=== PATIENT | female | born 1990 | race Caucasian/White ===

== ENCOUNTER 2018-11-19 09:56 | Day surgery (SDC) | payer OTHER ==
[~2018-11-19] VITALS: Ht 170.2 cm; Wt 64.0 kg
[2018-11-19] VITALS (10 sets, daily range): BP systolic 111–140; BP diastolic 57–89; PULSE 57–76; RESP 16–25; Ht 170.2 cm; Wt 64.0 kg
[~2018-11-19 09:56] MED LIST: ACET1TAB40 PO; AMOX1TAB10 PO; CEFAZOLIN 1 GM/50 ML (PMX) 50 ML IVPB SCH; IBUP-1542 PO
--- NOTE | 2018-11-19 10:54 | HPN ---
Date/Time of Note Date/Time of Note DATE: 11/19/18 TIME: 10:54 Interval H&P Admission Note Pt. seen H&P reviewed: No system changes CARL MCMILLAN MD Nov 19, 2018 10:54
[2018-11-19] MEDS ORDERED: LACTATED RINGER'S 1,000 ML IV SCH (11:30)
--- NOTE | 2018-11-19 11:36 | PREAC ---
Date/Time of Note Date/Time of Note DATE: 11/19/18 TIME: 11:35 Anesthesia Eval and Record Evaluation Time Pre-Procedure Interview DATE: 11/19/18 TIME: 11:35 Age 28 Sex female NPO: 8 hrs Preoperative diagnosis septal deviation Planned procedure septoplasty, nasal turbinate reduction Past Medical History Past Medical History: Includes Recreational drugs: Marijuana (daily recreational smoker, last smoked marijuana yesterday) Surgery & Anesthesia Issues No known issue (hx left thumb surgery) Meds Anticoagulation: Yes Beta Keith within 24 hr: No Reason Beta Keith not given: Pt. not on B-Keith Discontinued Scripts Acetaminophen-Codeine* (Acetaminophen-Cod #3*) 300-30 Mg Tab, 1 TAB PO Q4H PRN for PAIN, #14 TAB Prov:VIN CORRAL MD 12/15/15 Ibuprofen* (Motrin*) 600 Mg Tab, 600 MG PO Q6, #14 TAB Prov:VIN CORRAL MD 12/15/15 Amox Tr/Potassium Clavulanate (Amox Tr-K Clv 875-125 Mg Tab) 1 Tab Tablet, 1 TAB PO BID for 7 Days, TAB Prov:VIN CORRAL MD 12/15/15 Current Medications Cefazolin Sodium 50 ml @ 100 mls/hr PREOP IVPB ; Start 11/19/18 at 06:30; Stop 11/19/18 at 18:00 Lactated Ringer's 1,000 ml @ 30 mls/hr Q24H IV ; Start 11/19/18 at 11:30 Meds reviewed: Yes Allergies Coded Allergies: Iodine and Iodide Containing Produc (Verified Allergy, Unknown, 11/19/18) Allergies Reviewed: Yes Labs/Studies Labs Reviewed: Reviewed by anesthesiologist test: Negative Pre-procedure Exam Last vitals Vital Signs Date Temp Pulse Resp B/P (MAP) Pulse Ox O2 O2 Flow FiO2 Time Delivery Rate 11/19/18 97.4 57 16 111/57 97 Room Air 10:52 (75) Airway: Adequate mouth opening, Adequate thyromental dist Mallampati: Mallampati II Teeth: Normal Lung: Normal Heart: Normal ASA Physical Status ASA physical status: 1 Emergency: None Planned Anesthetic General/MAC: ETT Planned Pain Management Parenteral pain med, Local by surgeon Pre-operative Attestations Prior to commencing anesthesia and surgery, the patient was re-evaluated, there was verification of: *The patient's identity *The results of appropriate recent lab work and preoperative vital signs *The above evaluation not changing prior to induction *Anesthetic plan, risk benefits, alternative and complications discussed with patient/family; questions answered; patient/family understands, accepts and wishes to proceed. BIENVENIDO SOLER Nov 19, 2018 11:36
[2018-11-19] MEDS ORDERED: OXYMETAZOLINE 0.05% 15 ML NAS SPRAY NASAL ONE (12:18)
[2018-11-19] MEDS ORDERED: LIDOCAINE 1%/EPI (1:100,000) (MDV) 20 ML ONE (12:18)
[2018-11-19] MEDS ORDERED: BACITRACIN/POLYMYXIN 28.35 GM OINT TOP ONE (12:19)
[2018-11-19] MEDS ORDERED: MEPERIDINE 100 MG INJ ONE (12:35)
[2018-11-19] MEDS ORDERED: PROPOFOL 20 ML ONE (12:35)
[2018-11-19] MEDS ORDERED: GLYCOPYRROLATE 0.4 MG INJ ONE (12:35)
[2018-11-19] MEDS ORDERED: NEOSTIGMINE 3 MG/3 ML SYRINGE ONE (12:35)
[2018-11-19] MEDS ORDERED: SUCCINYLCHOLINE CHLORIDE 100 MG/5 ML SYG IV ONE (12:35)
[2018-11-19] MEDS ORDERED: LIDOCAINE 2% (SDV) 5 ML INJ ONE (12:35)
[2018-11-19] MEDS ORDERED: ROCURONIUM 50 MG INJ ONE (12:35)
[2018-11-19] MEDS ORDERED: ONDANSETRON 4 MG INJ ONE (14:00)
[2018-11-19] MEDS ORDERED: METOCLOPRAMIDE 10 MG INJ ONE (14:00)
[2018-11-19] MEDS ORDERED: CEFAZOLIN 1 GM INJ ONE (14:00)
--- NOTE | 2018-11-19 14:15 | SIPON ---
Date/Time of Note Date/Time of Note DATE: 11/19/18 TIME: 14:10 Operative Report Preoperative Diagnosis 1. Deviated septum; 2. Turbinate hypertrophy; 3. Nasal valve blockage Postoperative Diagnosis same Operation/Procedure Performed 1. Nasal valve blockage; 2. Septoplasty; 3. Turbinate reduction; 4. [place] of septal cartilage Surgeon see signature line assistant finance director None Anesthesia: general Estimated blood loss: minimal Transfusion Required none Specimen septum Grafts/Implants none Complications none CARL MCMILLAN MD Nov 19, 2018 14:15
[2018-11-19] MEDS ORDERED: HYDROmorphONE 1 MG/5 ML IV SYRINGE IV ONE (14:23)
[2018-11-19] MEDS ORDERED: ONDANSETRON 4 MG INJ IV PRN (14:30)
[2018-11-19] MEDS ORDERED: OXYCODONE/ACETAMINOPHEN (5/325) TAB PO PRN ×2 (14:30)
[2018-11-19] MEDS ORDERED: DIPHENHYDRAMINE 50 MG INJ IV PRN (14:30)
[2018-11-19] MEDS ORDERED: HYDROmorphONE 1 MG/5 ML IV SYRINGE IV PRN ×3 (14:30)
[2018-11-19] MEDS ORDERED: MIDAZOLAM 1 MG/ML 2 ML INJ IV PRN (14:30)
[2018-11-19] MEDS ORDERED: MEPERIDINE 25 MG INJ IV PRN (14:30)
[2018-11-19] MEDS ORDERED: FENTAnyl 50 MCG/ML VIAL IV PRN ×3 (14:30)
[2018-11-19] MEDS ORDERED: METOCLOPRAMIDE 10 MG INJ IV PRN (14:30)
--- NOTE | 2018-11-19 14:32 | OPR ---
Date/Time of Note Date/Time of Note DATE: 11/19/18 TIME: 14:15 Operative Report Procedure Date: Nov 19, 2018 Preoperative Diagnosis 1. Deviated septum; 2. Turbinate hypertrophy; 3. Nasal valve blockage Postoperative Diagnosis same Operation/Procedure Performed 1. Septoplasty; 2. Turbinate reduction; 3. Nasal valve repair; 4. [place] of septal cartilage Surgeon see signature line Screen Cutter And Trimmer none Anesthesia Type: general Estimated Blood Loss: minimal Transfusion none Specimen septum Grafts/Implants none Complications none Pt Condition Post Procedure: stable Disposition: PACU Indications The patient is a 28-year-old female with a long-standing history of nasal airway obstruction that has been refractory to medical management. The risks, benefits and alternatives of surgery were discussed with the patient which include but not limited to bleeding infection, pain, scar, septal perforation, no impr ovement in symptoms, change in aesthetic of the nose, and need for revision surgery. She understood these and signed consent. Procedure Description After informed consent was obtained, the patient was brought back to operating room suite. She was intubated by anesthesia and sedated. Her eyes were protected and a head drape was placed. The nose was prepped and draped in usual sterile fashion. Marbin-Synephrine soaked cottonoids were inserted to nasal cavities and left for several minutes and then removed. 1% lidocaine with epinephrine was injected into the nasal septum and inferior turbinates. A 15 blade was used to make a left hemitransfixion incision. Bilateral mucoperichondrial flaps were elevated. Once the flaps were elevated, the septum was evaluated. There was an acute fracture of the inferior septum towards the right side. In addition, the caudal septum was extremely twisted. I used a [place] elevator to disarticulate the bony cartilaginous junction. Deviated portions of the vomer bone were removed with Elder forceps. I then disarticulated the quadrangular cartilage from the maxillary crest. I then harvested a large piece of cartilage from the central portion of the quadrangular cartilage. I then used this cartilage to reinforce a new L strut. The [place] L strut was weakened by scoring the cartilage. I then used the harvested cartilage and mattressed it to the [place] L strut with mattressed 4-0 PDS suture. This allowed me to improve both the airway at the nasal valve region as well as at the caudal septum region. The L strut was then secured to the anterior nasal spine with a 4-0 PDS suture. The flap was then laid back down and closed with interrupted 4-0 chromic suture. A stab incision was made under the heads of both inferior turbinates. Mucoperiosteal flaps were elevated. Inferior turbinate bone was removed with Elder forceps. Bipolar cautery was applied were needed. Silastic Bobby splints coated in antibiotic ointment were placed bilaterally and secured with a 3-0 Prolene suture. The stomach was then suctioned. The patient was extubated by anesthesia and brought to the recovery room in stable condition. CARL MCMILLAN MD Nov 19, 2018 14:32
--- NOTE | 2018-11-19 15:07 | PAC ---
Date/Time of Note Date/Time of Note DATE: 11/19/18 TIME: 15:07 Post-Anesthesia Notes Post-Anesthesia Note Last documented vital signs Vital Signs Date Temp Pulse Resp B/P (MAP) Pulse Ox O2 O2 Flow FiO2 Time Delivery Rate 11/19/18 60 21 118/83 97 Room Air 14:55 (95) 11/19/18 98.0 14:16 Activity: WNL Respiratory function: WNL Cardiovascular function: WNL Mental status: Baseline Pain reasonably controlled: Yes Hydration appropriate: Yes Nausea/Vomiting absent: Yes Comments BT: 98.8 ARLETH JOE MD Nov 19, 2018 15:07
== END 2018-11-19 16:18 | disposition home or self-care (01) ==
LOC: SDS 09:56
PROVIDERS: ATTEND Otolaryngology
DX: J35.3 Hypertrophy of tonsils with hypertrophy of adenoids (principal); J34.2 Deviated nasal septum; M95.0 Acquired deformity of nose
CPT/HCPCS: 30140; 30520; 88300; J0690; J1170; J1200; J2175; Z7512; Z7610; J2405; J2710; J2765